=== PATIENT | female | born 1930 | race Caucasian/White ===

== ENCOUNTER 2021-10-19 06:39 | Inpatient (IN) | payer OTHER ==
[2021-10-19 06:46] VITALS: BMI 18.8
[2021-10-19] MEDS ORDERED: ACETAMINOPHEN 1000 MG/100 ML BAG IVPB ONE (07:23)
[2021-10-19 07:52] LABS: BASO % 0.7 % (0-2.0); EOS % 0.3 % (0-4.5); HEMATOCRIT 40.7 % (32.4-45.2); HEMOGLOBIN 13.9 GM/dL (10.7-15.3); LYMPH % 17.9 % (8-40); MCH 31.6 pg (25.7-33.7); MCHC 34.1 g/dl (32.0-36.0); MEAN CELL VOLUME 92.6 fl (80-96); MEAN PLT VOLUME 7.4 fl (7.5-11.1); NEUT % 75.1 % (42.8-82.8); PLATELET COUNT 242 10^3/uL (134-434); RBC 4.39 M/mm3 (3.60-5.2); RDW 14.4 % (11.6-15.6); WHITE BLOOD COUNT 8.5 K/mm3 (4.0-10.0)
[2021-10-19 08:10] LABS: CALCIUM 9.3 mg/dL (8.5-10.1)
[2021-10-19 08:11] LABS: ALBUMIN 3.5 g/dl (3.4-5.0); BLOOD UREA NITROGEN 11.5 mg/dL (7-18)
[2021-10-19 08:14] LABS: CREATININE 0.7 mg/dL (0.55-1.3)
[2021-10-19 08:16] LABS: BILIRUBIN,TOTAL 0.4 mg/dL (0.2-1); TOT PROT 6.8 g/dl (6.4-8.2)
[2021-10-19] MEDS ORDERED: ACETAMINOPHEN INJECTION 100 ML IVPB ONE (08:28)
[2021-10-19] MEDS ORDERED: LORazepam 0.5 MG TABLET PO ONE (09:43)
[2021-10-19] MEDS ORDERED: LORazepam 0.5 MG TABLET ONE (09:48)
[2021-10-19] MEDS ORDERED: DIPHTH,PERTUSS(ACELL),TET 0.5 ML DISP.SYRIN IM ONE ×2 (10:41→10:46)
[2021-10-19 11:00] LABS: PH,URINE 7.5 (5.0-8.0); URINE APPEARANCE CLEAR; URINE BILIRUBIN NEGATIVE (NEGATIVE); URINE COLOR YELLOW; URINE GLUCOSE (UA) NEGATIVE (NEGATIVE); URINE KETONE NEGATIVE (NEGATIVE); URINE LEUK ESTERASE NEGATIVE (NEGATIVE); URINE NITRITE NEGATIVE (NEGATIVE); URINE PROTEIN NEGATIVE (NEGATIVE); URINE UROBILINOGEN 0.2 mg/dL (0.2-1.0)
[2021-10-20] MEDS ORDERED: LORazepam 0.5 MG TABLET PO PRN (07:58)
[2021-10-20] MEDS: ASCORBIC ACID 500 MG TABLET (FP) PO SCH (10:51)
[2021-10-20] MEDS: MEMANTINE HCL 5 MG TABLET (UD) PO SCH (10:51)
[2021-10-20] MEDS: CHOLECALCIFEROL (VIT D3) 400 UNIT (10 MCG) TABLET PO SCH (10:51)
[2021-10-20] MEDS: ENOXAPARIN NA (PORCINE) 40 MG/0.4 ML DISP.SYRIN SQ SCH (10:51)
[2021-10-20] MEDS: CYANOCOBALAMIN 1,000 MCG TABLET (FP) PO SCH (10:51)
[2021-10-21 08:46] LABS: BASO % 0.4 % (0-2.0); HEMATOCRIT 39.7 % (32.4-45.2); HEMOGLOBIN 13.5 GM/dL (10.7-15.3); LYMPH % 19.7 % (8-40); MCH 31.3 pg (25.7-33.7); MEAN CELL VOLUME 92.2 fl (80-96); MEAN PLT VOLUME 8.3 fl (7.5-11.1); MONO % 7.9 % (3.8-10.2); PLATELET COUNT 240 10^3/uL (134-434); RBC 4.31 M/mm3 (3.60-5.2); RDW 14.2 % (11.6-15.6); WHITE BLOOD COUNT 8.3 K/mm3 (4.0-10.0)
[2021-10-21 09:24] LABS: CALCIUM 8.5 mg/dL (8.5-10.1)
[2021-10-21 09:25] LABS: ALBUMIN 3.2 g/dl (3.4-5.0); BLOOD UREA NITROGEN 20.1 mg/dL (7-18); MAGNESIUM 2.2 mg/dL (1.8-2.4)
[2021-10-21 09:27] LABS: CREATININE 0.7 mg/dL (0.55-1.3)
[2021-10-21 09:29] LABS: BILIRUBIN,TOTAL 0.8 mg/dL (0.2-1); PHOSPHOROUS 4.1 mg/dL (2.5-4.9); TOT PROT 6.4 g/dl (6.4-8.2)
[2021-10-21] MEDS: CHOLECALCIFEROL (VIT D3) 400 UNIT (10 MCG) TABLET PO SCH (10:21)
[2021-10-21] MEDS: CYANOCOBALAMIN 1,000 MCG TABLET (FP) PO SCH (10:21)
[2021-10-21] MEDS: MEMANTINE HCL 5 MG TABLET (UD) PO SCH (10:21)
[2021-10-21] MEDS: ASCORBIC ACID 500 MG TABLET (FP) PO SCH (10:21)
[2021-10-21] MEDS: ENOXAPARIN NA (PORCINE) 40 MG/0.4 ML DISP.SYRIN SQ SCH (10:21)
[2021-10-21] MEDS: MELATONIN 5 MG TABLETS PO SCH (21:18)
[2021-10-22 07:18] LABS: BASO % 0.4 % (0-2.0); EOS % 0.8 % (0-4.5); HEMATOCRIT 38.8 % (32.4-45.2); LYMPH % 23.4 % (8-40); MCHC 33.6 g/dl (32.0-36.0); MEAN CELL VOLUME 92.4 fl (80-96); MEAN PLT VOLUME 7.9 fl (7.5-11.1); MONO % 8.4 % (3.8-10.2); PLATELET COUNT 220 10^3/uL (134-434); RDW 14.3 % (11.6-15.6)
[2021-10-22 07:43] LABS: BLOOD UREA NITROGEN 22.6 mg/dL (7-18); CALCIUM 8.5 mg/dL (8.5-10.1); MAGNESIUM 2.2 mg/dL (1.8-2.4)
[2021-10-22 07:47] LABS: CREATININE 0.6 mg/dL (0.55-1.3)
[2021-10-22] MEDS: ENOXAPARIN NA (PORCINE) 40 MG/0.4 ML DISP.SYRIN SQ SCH (09:20)
[2021-10-22] MEDS: CHOLECALCIFEROL (VIT D3) 400 UNIT (10 MCG) TABLET PO SCH (09:20)
[2021-10-22] MEDS: ASCORBIC ACID 500 MG TABLET (FP) PO SCH (09:20)
[2021-10-22] MEDS: CYANOCOBALAMIN 1,000 MCG TABLET (FP) PO SCH (09:20)
[2021-10-22] MEDS: MEMANTINE HCL 5 MG TABLET (UD) PO SCH (09:20)
[2021-10-22] MEDS: MELATONIN 5 MG TABLETS PO SCH (22:45)
[2021-10-23 06:57] LABS: BASO % 0.5 % (0-2.0); EOS % 0.9 % (0-4.5); HEMOGLOBIN 12.7 GM/dL (10.7-15.3); LYMPH % 24.3 % (8-40); MCH 31.7 pg (25.7-33.7); MCHC 34.4 g/dl (32.0-36.0); MEAN CELL VOLUME 92.4 fl (80-96); MEAN PLT VOLUME 7.5 fl (7.5-11.1); MONO % 8.9 % (3.8-10.2); NEUT % 65.4 % (42.8-82.8); PLATELET COUNT 199 10^3/uL (134-434); RDW 14.6 % (11.6-15.6)
[2021-10-23 07:11] LABS: BLOOD UREA NITROGEN 24.5 mg/dL (7-18); MAGNESIUM 2.1 mg/dL (1.8-2.4)
[2021-10-23 07:14] LABS: PHOSPHOROUS 3.5 mg/dL (2.5-4.9)
[2021-10-23 07:15] LABS: CREATININE 0.6 mg/dL (0.55-1.3)
[2021-10-23 09:52] VITALS: BP 131/83; PULSE 84; TEMP 97.8
[2021-10-23] MEDS: CYANOCOBALAMIN 1,000 MCG TABLET (FP) PO SCH (09:57)
[2021-10-23] MEDS: ASCORBIC ACID 500 MG TABLET (FP) PO SCH (09:57)
[2021-10-23] MEDS: MEMANTINE HCL 5 MG TABLET (UD) PO SCH (09:57)
[2021-10-23] MEDS: CHOLECALCIFEROL (VIT D3) 400 UNIT (10 MCG) TABLET PO SCH (09:57)
[2021-10-23] MEDS: ENOXAPARIN NA (PORCINE) 40 MG/0.4 ML DISP.SYRIN SQ SCH (09:57)
[2021-10-24 14:08] LABS: SARS-CoV-2 NAA Not Detected (Not Detected)
== END 2021-10-23 12:55 | DRG 884 ==
LOC: JER 06:39 → JERBED 12:27 → OBSVTOIN 15:38 → J4W 23:29
PROVIDERS: ADMIT Internal Medicine; ATTEND Internal Medicine
PROC: 0HQ0XZZ Repair Scalp Skin, External Approach (ICD-10-PCS; principal; 2021-10-19)
DX: F03.90 Unspecified dementia, unspecified severity, without behavioral disturbance, psychotic disturbance, mood disturbance, and anxiety (principal); E43 Unspecified severe protein-calorie malnutrition; R64 Cachexia; Z68.1 Body mass index [BMI] 19.9 or less, adult; S01.01XA Laceration without foreign body of scalp, initial encounter; W19.XXXA Unspecified fall, initial encounter; Y93.89 Activity, other specified; Y92.091 Bathroom in other non-institutional residence as the place of occurrence of the external cause; Y99.8 Other external cause status; R13.12 Dysphagia, oropharyngeal phase
CPT/HCPCS: 36415; 70450-TC; 71045-TC-FY; 72125-TC; 72170-TC-FY; 74230-TC-FY; 80048; 80053; 81003; 83735; 84100; 84443; 84479; 84484; 85025; 87086; 87804; 90715; 92611-GN; 93005; 93010; 97116-GP; 97162-GP; 99285-25; C9803-CS; G0378; U0003; U0005

== ENCOUNTER 2021-12-31 11:35 | Inpatient (IN) | payer OTHER, BC ==
[2021-12-31] MEDS ORDERED: morphine CARPU-JECT 4 MG/1 ML DISP.SYRIN IVPUSH ONE ×3 (12:52→13:55)
[2021-12-31] MEDS ORDERED: morphine CARPU-JECT 2 MG/1 ML DISP.SYRIN IVPUSH ONE (12:52)
[2021-12-31] MEDS ORDERED: SODIUM CHLORIDE 500 ML IV STA (12:58)
[2021-12-31 14:10] LABS: ALBUMIN 3.4 g/dl (3.4-5.0); CALCIUM 9.7 mg/dL (8.5-10.1)
[2021-12-31 14:11] LABS: BLOOD UREA NITROGEN 13.4 mg/dL (7-18)
[2021-12-31 14:13] LABS: CREATININE 0.5 mg/dL (0.55-1.3)
[2021-12-31 14:14] LABS: BILIRUBIN,TOTAL 0.4 mg/dL (0.2-1); TOT PROT 7.1 g/dl (6.4-8.2)
[2021-12-31 14:38] LABS: EPI CELLS 0 /uL (0-25.1); HYALINE CASTS 1 /uL (0-3.1); URINE APPEARANCE CLEAR; URINE BACTERIA 3683 /uL (0-1359); URINE BILIRUBIN NEGATIVE (NEGATIVE); URINE COLOR YELLOW; URINE GLUCOSE (UA) NEGATIVE (NEGATIVE); URINE KETONE NEGATIVE (NEGATIVE); URINE LEUK ESTERASE 3+ (NEGATIVE); URINE NITRITE POSITIVE (NEGATIVE); URINE PROTEIN NEGATIVE (NEGATIVE); URINE RBC 5 /uL (0-23.9); URINE UROBILINOGEN 0.2 mg/dL (0.2-1.0); URINE WBC 217 /uL (0-25.8)
[2021-12-31] MEDS ORDERED: CEFTRIAXONE 1 GM in DEXTROSE 5%-WATER - 100 ML IVPB ONE (14:48)
[2021-12-31] MEDS ORDERED: CEFTRIAXONE 1 GM/50 ML BAG ONE (14:59)
[2021-12-31] MEDS ORDERED: ACETAMINOPHEN 1000 MG/100 ML BAG IVPB PRN (16:59)
[2021-12-31] MEDS ORDERED: SODIUM CHLORIDE 1,000 ML IV SCH (17:00)
[2021-12-31 17:38] LABS: BASO % 0.1 % (0-2.0); EOS % 0.1 % (0-4.5); HEMATOCRIT 39.5 % (32.4-45.2); HEMOGLOBIN 13.1 GM/dL (10.7-15.3); LYMPH % 6.7 % (8-40); MCH 31.1 pg (25.7-33.7); MCHC 33.2 g/dl (32.0-36.0); MEAN CELL VOLUME 93.6 fl (80-96); MONO % 4.1 % (3.8-10.2); PLATELET COUNT 326 10^3/uL (134-434); RBC 4.22 M/mm3 (3.60-5.2); RDW 14.6 % (11.6-15.6); WHITE BLOOD COUNT 16.2 K/mm3 (4.0-10.0)
[2021-12-31] MEDS: morphine SULFATE 4 MG/ML VIAL IVPUSH PRN ×2 (18:17→21:41)
[2022-01-01] MEDS: morphine SULFATE 4 MG/ML VIAL IVPUSH PRN ×2 (04:18→21:33)
[2022-01-01 08:53] LABS: INR 1.11 (0.83-1.09); PROTHROMBIN TIME (PATIENT) 12.8 SEC (9.7-13.0)
[2022-01-01 08:55] LABS: BASO % 0.1 % (0-2.0); HEMATOCRIT 34.8 % (32.4-45.2); HEMOGLOBIN 12.1 GM/dL (10.7-15.3); LYMPH % 5.7 % (8-40); MCH 31.9 pg (25.7-33.7); MCHC 34.6 g/dl (32.0-36.0); MEAN PLT VOLUME 7.2 fl (7.5-11.1); MONO % 5.4 % (3.8-10.2); NEUT % 88.8 % (42.8-82.8); PLATELET COUNT 290 10^3/uL (134-434); RBC 3.78 M/mm3 (3.60-5.2); RDW 14.6 % (11.6-15.6)
[2022-01-01 08:56] LABS: ACTIVATED PTT 28.5 SECONDS (25.2-36.5)
[2022-01-01 09:37] LABS: ALBUMIN 3.1 g/dl (3.4-5.0); MAGNESIUM 2.2 mg/dL (1.8-2.4)
[2022-01-01 09:38] LABS: BLOOD UREA NITROGEN 14.8 mg/dL (7-18)
[2022-01-01 09:41] LABS: CREATININE 0.5 mg/dL (0.55-1.3); PHOSPHOROUS 3.2 mg/dL (2.5-4.9)
[2022-01-01 09:42] LABS: BILIRUBIN,TOTAL 0.8 mg/dL (0.2-1); TOT PROT 6.2 g/dl (6.4-8.2)
[2022-01-01] MEDS ORDERED: ENOXAPARIN NA (PORCINE) 30 MG/0.3 ML DISP.SYRIN SQ SCH (10:00)
[2022-01-01] MEDS ORDERED: CEFTRIAXONE 1 GM in DEXTROSE 5%-WATER - 50 ML IVPB SCH (10:00)
[2022-01-01] MEDS ORDERED: cefTRIAXone SODIUM 1 GM VIAL ONE (10:09)
[2022-01-01] MEDS ORDERED: DEXTROSE 5%-WATER - 50 ML IVPB ONE ×3 (10:09→21:32)
[2022-01-01] MEDS: MEMANTINE HCL 5 MG TABLET (UD) PO SCH (10:20)
[2022-01-01] MEDS ORDERED: PROPOFOL 20 ML ONE (11:24)
[2022-01-01] MEDS ORDERED: ceFAZolin SODIUM 1 GM VIAL ONE ×3 (11:28→21:32)
[2022-01-01] MEDS ORDERED: ACETAMINOPHEN INJECTION 100 ML IVPB ONE ×2 (11:36→14:58)
[2022-01-01] MEDS ORDERED: ceFAZolin SODIUM 1 GM VIAL IVPB ONE (12:30)
[2022-01-01] MEDS ORDERED: VANCOMYCIN 1,000 MG VIAL (RESTRICTED TO ID ONLY) ONE (13:12)
[2022-01-01] MEDS ORDERED: VANCOMYCIN 1,000 MG VIAL (RESTRICTED TO ID ONLY) IVPB ONE (13:15)
[2022-01-01] MEDS ORDERED: CEFAZOLIN 1 GM in DEXTROSE 5%-WATER - 50 ML IVPB SCH ×2 (14:15→20:00)
[2022-01-01] MEDS ORDERED: DEXMEDETOMIDINE HCL 200 MCG/2 ML IVPB ONE (14:58)
[2022-01-01] MEDS: CEFAZOLIN 1 GM in DEXTROSE 5%-WATER - 50 ML IVPB SCH ×2 (15:51→21:36)
[2022-01-02] MEDS: morphine SULFATE 4 MG/ML VIAL IVPUSH PRN ×3 (04:17→17:14)
[2022-01-02] MEDS ORDERED: SUCCINYLCHOLINE CHLORIDE 200 MG/10 ML SYRINGE ONE ×2 (07:01→07:04)
[2022-01-02] MEDS ORDERED: PROPOFOL 20 ML ONE ×2 (07:02→07:24)
[2022-01-02 09:02] LABS: HEMATOCRIT 30.5 % (32.4-45.2); HEMOGLOBIN 10.4 GM/dL (10.7-15.3); MCH 31.6 pg (25.7-33.7); MCHC 34.2 g/dl (32.0-36.0); MEAN CELL VOLUME 92.6 fl (80-96); MEAN PLT VOLUME 7.9 fl (7.5-11.1); PLATELET COUNT 234 10^3/uL (134-434); RDW 14.3 % (11.6-15.6); WHITE BLOOD COUNT 14.4 K/mm3 (4.0-10.0)
[2022-01-02 09:13] LABS: CALCIUM 8.9 mg/dL (8.5-10.1)
[2022-01-02 09:14] LABS: BLOOD UREA NITROGEN 20.6 mg/dL (7-18)
[2022-01-02 09:16] LABS: CREATININE 0.4 mg/dL (0.55-1.3)
[2022-01-02] MEDS: MEMANTINE HCL 5 MG TABLET (UD) PO SCH (09:28)
[2022-01-02] MEDS ORDERED: ASPIRIN 325 MG TABLET PO SCH (10:00)
[2022-01-02 11:55] VITALS: BMI 12.5
[2022-01-02] MEDS ORDERED: CEFTRIAXONE 1 GM in DEXTROSE 5%-WATER - 50 ML IVPB ONE (15:59)
[2022-01-02] MEDS ORDERED: DEXTROSE 5%-WATER - 50 ML IVPB ONE (16:48)
[2022-01-02] MEDS ORDERED: cefTRIAXone SODIUM 1 GM VIAL ONE (16:48)
[2022-01-03] MEDS: MEMANTINE HCL 5 MG TABLET (UD) PO SCH (09:47)
[2022-01-03] MEDS ORDERED: ENOXAPARIN NA (PORCINE) 40 MG/0.4 ML DISP.SYRIN SQ SCH (10:00)
[2022-01-03] MEDS: ENOXAPARIN NA (PORCINE) 30 MG/0.3 ML DISP.SYRIN SQ SCH (10:43)
[2022-01-03 10:52] LABS: BASO % 0.2 % (0-2.0); EOS % 0.1 % (0-4.5); HEMATOCRIT 31.9 % (32.4-45.2); HEMOGLOBIN 10.7 GM/dL (10.7-15.3); LYMPH % 8.4 % (8-40); MCH 31.5 pg (25.7-33.7); MCHC 33.6 g/dl (32.0-36.0); MEAN CELL VOLUME 93.7 fl (80-96); MEAN PLT VOLUME 7.6 fl (7.5-11.1); MONO % 5.4 % (3.8-10.2); NEUT % 85.9 % (42.8-82.8); PLATELET COUNT 235 10^3/uL (134-434); RBC 3.41 M/mm3 (3.60-5.2); RDW 14.5 % (11.6-15.6); WHITE BLOOD COUNT 14.8 K/mm3 (4.0-10.0)
[2022-01-03 10:58] LABS: HEMATOCRIT 32.7 % (32.4-45.2); HEMOGLOBIN 10.8 GM/dL (10.7-15.3); MCH 31.3 pg (25.7-33.7); MCHC 33.1 g/dl (32.0-36.0); MEAN CELL VOLUME 94.6 fl (80-96); PLATELET COUNT 252 10^3/uL (134-434); RBC 3.46 M/mm3 (3.60-5.2); RDW 14.6 % (11.6-15.6)
[2022-01-03 11:14] LABS: CALCIUM 9.2 mg/dL (8.5-10.1)
[2022-01-03 11:18] LABS: CREATININE 0.5 mg/dL (0.55-1.3)
[2022-01-03] MEDS: oxyCODONE HCL 5 MG TABLET PO SCH ×2 (14:03→20:17)
[2022-01-04] MEDS: oxyCODONE HCL 5 MG TABLET PO SCH ×3 (04:56→21:14)
[2022-01-04 08:57] LABS: BASO % 0.3 % (0-2.0); EOS % 0.1 % (0-4.5); HEMATOCRIT 32.8 % (32.4-45.2); HEMOGLOBIN 11.2 GM/dL (10.7-15.3); LYMPH % 10.8 % (8-40); MCH 31.8 pg (25.7-33.7); MCHC 34.1 g/dl (32.0-36.0); MEAN CELL VOLUME 93.1 fl (80-96); MEAN PLT VOLUME 7.6 fl (7.5-11.1); NEUT % 82.8 % (42.8-82.8); PLATELET COUNT 243 10^3/uL (134-434); RBC 3.53 M/mm3 (3.60-5.2); RDW 14.3 % (11.6-15.6); WHITE BLOOD COUNT 15.9 K/mm3 (4.0-10.0)
[2022-01-04] MEDS: ENOXAPARIN NA (PORCINE) 30 MG/0.3 ML DISP.SYRIN SQ SCH (09:06)
[2022-01-04] MEDS: MEMANTINE HCL 5 MG TABLET (UD) PO SCH (09:06)
[2022-01-04 09:19] LABS: ALBUMIN 2.7 g/dl (3.4-5.0); BLOOD UREA NITROGEN 18.2 mg/dL (7-18); MAGNESIUM 2.3 mg/dL (1.8-2.4)
[2022-01-04 09:22] LABS: CREATININE 0.4 mg/dL (0.55-1.3); PHOSPHOROUS 2.3 mg/dL (2.5-4.9)
[2022-01-05] MEDS: oxyCODONE HCL 5 MG TABLET PO SCH ×3 (03:56→21:22)
[2022-01-05 09:57] LABS: BASO % 0.3 % (0-2.0); HEMATOCRIT 32.6 % (32.4-45.2); HEMOGLOBIN 10.7 GM/dL (10.7-15.3); MCH 31.2 pg (25.7-33.7); MEAN CELL VOLUME 94.8 fl (80-96); MEAN PLT VOLUME 7.7 fl (7.5-11.1); MONO % 4.9 % (3.8-10.2); NEUT % 87.8 % (42.8-82.8); PLATELET COUNT 270 10^3/uL (134-434); RBC 3.44 M/mm3 (3.60-5.2); RDW 14.3 % (11.6-15.6); WHITE BLOOD COUNT 14.6 K/mm3 (4.0-10.0)
[2022-01-05 10:18] LABS: CALCIUM 8.9 mg/dL (8.5-10.1)
[2022-01-05 10:19] LABS: ALBUMIN 2.6 g/dl (3.4-5.0); BLOOD UREA NITROGEN 22.3 mg/dL (7-18)
[2022-01-05 10:21] LABS: CREATININE 0.5 mg/dL (0.55-1.3)
[2022-01-05 10:22] LABS: PHOSPHOROUS 2.4 mg/dL (2.5-4.9)
[2022-01-05 10:23] LABS: TOT PROT 5.7 g/dl (6.4-8.2)
[2022-01-05 10:24] LABS: BILIRUBIN,TOTAL 0.6 mg/dL (0.2-1)
[2022-01-05] MEDS: ENOXAPARIN NA (PORCINE) 30 MG/0.3 ML DISP.SYRIN SQ SCH (10:28)
[2022-01-05] MEDS: MEMANTINE HCL 5 MG TABLET (UD) PO SCH (10:28)
[2022-01-05] MEDS: NAPH,MB-DB/K PH,MBDB POWDER PACKET PO SCH ×2 (14:30→21:23)
[2022-01-06] MEDS: oxyCODONE HCL 5 MG TABLET PO SCH ×3 (05:40→21:00)
[2022-01-06] MEDS: NAPH,MB-DB/K PH,MBDB POWDER PACKET PO SCH (06:44)
[2022-01-06] MEDS: ENOXAPARIN NA (PORCINE) 30 MG/0.3 ML DISP.SYRIN SQ SCH (10:10)
[2022-01-06] MEDS: MEMANTINE HCL 5 MG TABLET (UD) PO SCH (10:11)
[2022-01-06 12:04] LABS: HEMATOCRIT 32.4 % (32.4-45.2); HEMOGLOBIN 10.7 GM/dL (10.7-15.3); MCH 31.1 pg (25.7-33.7); MCHC 33.1 g/dl (32.0-36.0); MEAN CELL VOLUME 93.9 fl (80-96); MEAN PLT VOLUME 7.8 fl (7.5-11.1); PLATELET COUNT 283 10^3/uL (134-434); RBC 3.45 M/mm3 (3.60-5.2); RDW 14.2 % (11.6-15.6); WHITE BLOOD COUNT 13.1 K/mm3 (4.0-10.0)
[2022-01-06 12:26] LABS: CALCIUM 8.4 mg/dL (8.5-10.1); MAGNESIUM 2.2 mg/dL (1.8-2.4)
[2022-01-06 12:27] LABS: BLOOD UREA NITROGEN 16.9 mg/dL (7-18)
[2022-01-06 12:30] LABS: CREATININE 0.5 mg/dL (0.55-1.3); PHOSPHOROUS 3.2 mg/dL (2.5-4.9)
[2022-01-06 19:32] LABS: CALCIUM 8.3 mg/dL (8.5-10.1)
[2022-01-06 19:33] LABS: ALBUMIN 2.7 g/dl (3.4-5.0); BLOOD UREA NITROGEN 17.2 mg/dL (7-18)
[2022-01-06 19:36] LABS: CREATININE 0.5 mg/dL (0.55-1.3)
[2022-01-06 19:37] LABS: TOT PROT 6.2 g/dl (6.4-8.2)
[2022-01-06 19:38] LABS: BILIRUBIN,TOTAL 0.9 mg/dL (0.2-1)
[2022-01-06 19:48] LABS: ACTIVATED PTT 31.2 SECONDS (25.2-36.5); INR 1.16 (0.83-1.09); PROTHROMBIN TIME (PATIENT) 13.4 SEC (9.7-13.0)
[2022-01-07] MEDS ORDERED: HEPARIN NA (PORCINE) 5,000 UNITS/ML 1ML VIAL IVPUSH PRN ×4 (00:04→04:33)
[2022-01-07] MEDS ORDERED: HEPARIN INFUSION - 25,000 UNITS/500 ML INFUS.BAG IVPB SCH (00:15)
[2022-01-07] MEDS: HEPARIN INFUSION - 25,000 UNITS/500 ML INFUS.BAG IVPB SCH (00:35)
[2022-01-07] MEDS: oxyCODONE HCL 5 MG TABLET PO SCH ×3 (06:22→22:50)
[2022-01-07 08:36] LABS: HEMATOCRIT 29.5 % (32.4-45.2); MCH 31.4 pg (25.7-33.7); MCHC 33.8 g/dl (32.0-36.0); MEAN CELL VOLUME 92.9 fl (80-96); MEAN PLT VOLUME 7.4 fl (7.5-11.1); PLATELET COUNT 299 10^3/uL (134-434); RBC 3.18 M/mm3 (3.60-5.2); RDW 14.2 % (11.6-15.6); WHITE BLOOD COUNT 13.7 K/mm3 (4.0-10.0)
[2022-01-07] MEDS: MEMANTINE HCL 5 MG TABLET (UD) PO SCH (09:31)
[2022-01-07 09:36] LABS: ALBUMIN 2.3 g/dl (3.4-5.0); BILIRUBIN,TOTAL 0.9 mg/dL (0.2-1); BLOOD UREA NITROGEN 16.5 mg/dL (7-18); CREATININE 0.4 mg/dL (0.55-1.3); TOT PROT 5.4 g/dl (6.4-8.2)
[2022-01-07] MEDS ORDERED: SENNOSIDES 8.6MG TABLET (FP) PO PRN (12:14)
[2022-01-07] MEDS: POLYETHYLENE GLYCOL (HEALTHYLAX) 3350 17 GM PACKET PO SCH (17:56)
[2022-01-08] MEDS: HEPARIN INFUSION - 25,000 UNITS/500 ML INFUS.BAG IVPB SCH (05:34)
[2022-01-08] MEDS: oxyCODONE HCL 5 MG TABLET PO SCH ×3 (05:34→20:59)
[2022-01-08 07:43] LABS: HEMATOCRIT 31.9 % (32.4-45.2); HEMOGLOBIN 10.7 GM/dL (10.7-15.3); MCHC 33.5 g/dl (32.0-36.0); MEAN CELL VOLUME 92.6 fl (80-96); MEAN PLT VOLUME 7.8 fl (7.5-11.1); PLATELET COUNT 315 10^3/uL (134-434); RBC 3.44 M/mm3 (3.60-5.2); RDW 14.2 % (11.6-15.6)
[2022-01-08 07:56] LABS: CALCIUM 8.3 mg/dL (8.5-10.1)
[2022-01-08 07:57] LABS: BLOOD UREA NITROGEN 19.5 mg/dL (7-18)
[2022-01-08 08:00] LABS: CREATININE 0.4 mg/dL (0.55-1.3)
[2022-01-08] MEDS: MEMANTINE HCL 5 MG TABLET (UD) PO SCH (09:53)
[2022-01-08] MEDS: POLYETHYLENE GLYCOL (HEALTHYLAX) 3350 17 GM PACKET PO SCH (09:53)
[2022-01-08] MEDS ORDERED: METOPROLOL TARTRATE 5 MG/5 ML VIAL IVPUSH ONE (19:05)
[2022-01-09] MEDS: HEPARIN INFUSION - 25,000 UNITS/500 ML INFUS.BAG IVPB SCH ×2 (04:33→12:58)
[2022-01-09] MEDS: oxyCODONE HCL 5 MG TABLET PO SCH ×3 (05:03→20:51)
[2022-01-09 07:36] LABS: HEMOGLOBIN 10.5 GM/dL (10.7-15.3); MCH 31.5 pg (25.7-33.7); MCHC 33.8 g/dl (32.0-36.0); MEAN CELL VOLUME 93.4 fl (80-96); MEAN PLT VOLUME 7.9 fl (7.5-11.1); PLATELET COUNT 297 10^3/uL (134-434); RBC 3.32 M/mm3 (3.60-5.2); RDW 14.2 % (11.6-15.6); WHITE BLOOD COUNT 12.1 K/mm3 (4.0-10.0)
[2022-01-09 08:01] LABS: CALCIUM 8.3 mg/dL (8.5-10.1)
[2022-01-09 08:02] LABS: BLOOD UREA NITROGEN 19.5 mg/dL (7-18)
[2022-01-09 08:05] LABS: CREATININE 0.4 mg/dL (0.55-1.3)
[2022-01-09] MEDS: MEMANTINE HCL 5 MG TABLET (UD) PO SCH (10:21)
[2022-01-09] MEDS: POLYETHYLENE GLYCOL (HEALTHYLAX) 3350 17 GM PACKET PO SCH (10:21)
[2022-01-09] MEDS: APIXABAN 5 MG TABLET PO SCH (21:25)
[2022-01-10] MEDS: oxyCODONE HCL 5 MG TABLET PO SCH ×3 (05:36→21:55)
[2022-01-10 06:37] LABS: HEMATOCRIT 32.9 % (32.4-45.2); MCHC 33.5 g/dl (32.0-36.0); MEAN CELL VOLUME 92.3 fl (80-96); MEAN PLT VOLUME 7.5 fl (7.5-11.1); PLATELET COUNT 354 10^3/uL (134-434); RBC 3.57 M/mm3 (3.60-5.2); RDW 14.3 % (11.6-15.6); WHITE BLOOD COUNT 19.1 K/mm3 (4.0-10.0)
[2022-01-10 06:48] LABS: CALCIUM 8.2 mg/dL (8.5-10.1)
[2022-01-10 06:52] LABS: CREATININE 0.5 mg/dL (0.55-1.3)
[2022-01-10] MEDS: APIXABAN 5 MG TABLET PO SCH ×2 (10:48→21:56)
[2022-01-10] MEDS: MEMANTINE HCL 5 MG TABLET (UD) PO SCH (10:49)
[2022-01-10] MEDS: POLYETHYLENE GLYCOL (HEALTHYLAX) 3350 17 GM PACKET PO SCH (10:49)
[2022-01-10] MEDS ORDERED: DEXTROSE 5%-0.45% SALINE 1,000 ML IV SCH (11:45)
[2022-01-11] MEDS: oxyCODONE HCL 5 MG TABLET PO SCH ×3 (05:54→21:22)
[2022-01-11 08:21] LABS: HEMATOCRIT 34.4 % (32.4-45.2); HEMOGLOBIN 11.3 GM/dL (10.7-15.3); MCH 30.8 pg (25.7-33.7); MCHC 32.8 g/dl (32.0-36.0); MEAN CELL VOLUME 93.9 fl (80-96); MEAN PLT VOLUME 7.9 fl (7.5-11.1); PLATELET COUNT 326 10^3/uL (134-434); RBC 3.67 M/mm3 (3.60-5.2); RDW 14.4 % (11.6-15.6); WHITE BLOOD COUNT 15.4 K/mm3 (4.0-10.0)
[2022-01-11 08:30] LABS: CALCIUM 8.7 mg/dL (8.5-10.1)
[2022-01-11 08:31] LABS: BLOOD UREA NITROGEN 19.7 mg/dL (7-18)
[2022-01-11 08:34] LABS: CREATININE 0.5 mg/dL (0.55-1.3)
[2022-01-11] MEDS: APIXABAN 5 MG TABLET PO SCH ×2 (10:10→21:32)
[2022-01-11] MEDS: MEMANTINE HCL 5 MG TABLET (UD) PO SCH (10:11)
[2022-01-11] MEDS: POLYETHYLENE GLYCOL (HEALTHYLAX) 3350 17 GM PACKET PO SCH (11:08)
[2022-01-11] MEDS ORDERED: METOPROLOL TARTRATE 5 MG/5 ML VIAL IVPUSH PRN (14:21)
[2022-01-11] MEDS ORDERED: METOPROLOL TARTRATE 5 MG/5 ML VIAL ONE (14:25)
[2022-01-11] MEDS ORDERED: METOPROLOL TARTRATE 5 MG/5 ML VIAL IVPUSH ONE (14:33)
[2022-01-11] MEDS ORDERED: ACETAMINOPHEN 1000 MG/100 ML BAG IVPB PRN ×2 (14:38→15:28)
[2022-01-11 14:56] LABS: ARTERIAL BLD GAS O2 SATURATION 93.5 % (95-98); ARTERIAL BLOOD GAS BASE EXCESS 4.5 mmol/L (-2-2); ARTERIAL BLOOD GAS PO2 64.6 mmHg (80-100); ARTERIAL BLOOD GAS pH 7.454 (7.350-7.450)
[2022-01-11 14:57] LABS: ALLENS TEST POSITIVE
[2022-01-11 15:46] LABS: EPI CELLS 4 /uL (0-25.1); HYALINE CASTS 0 /uL (0-3.1); PH,URINE 5.5 (5.0-8.0); URINE APPEARANCE TURBID; URINE BACTERIA 98 /uL (0-1359); URINE BILIRUBIN NEGATIVE (NEGATIVE); URINE COLOR DK YELLOW; URINE GLUCOSE (UA) NEGATIVE (NEGATIVE); URINE KETONE NEGATIVE (NEGATIVE); URINE LEUK ESTERASE NEGATIVE (NEGATIVE); URINE NITRITE NEGATIVE (NEGATIVE); URINE PROTEIN 1+ (NEGATIVE); URINE RBC 14 /uL (0-23.9); URINE WBC 5 /uL (0-25.8)
[2022-01-12] MEDS: oxyCODONE HCL 5 MG TABLET PO SCH ×3 (04:41→21:10)
[2022-01-12 09:07] LABS: HEMATOCRIT 32.3 % (32.4-45.2); HEMOGLOBIN 10.7 GM/dL (10.7-15.3); MCH 31.1 pg (25.7-33.7); MCHC 33.1 g/dl (32.0-36.0); MEAN PLT VOLUME 7.7 fl (7.5-11.1); PLATELET COUNT 296 10^3/uL (134-434); RBC 3.44 M/mm3 (3.60-5.2); RDW 14.3 % (11.6-15.6); WHITE BLOOD COUNT 19.3 K/mm3 (4.0-10.0)
[2022-01-12 09:26] LABS: CALCIUM 8.8 mg/dL (8.5-10.1)
[2022-01-12 09:27] LABS: BLOOD UREA NITROGEN 27.1 mg/dL (7-18)
[2022-01-12 09:30] LABS: CREATININE 0.4 mg/dL (0.55-1.3)
[2022-01-12] MEDS: MEMANTINE HCL 5 MG TABLET (UD) PO SCH (10:34)
[2022-01-12] MEDS: POLYETHYLENE GLYCOL (HEALTHYLAX) 3350 17 GM PACKET PO SCH (10:34)
[2022-01-12] MEDS: APIXABAN 5 MG TABLET PO SCH ×2 (10:34→21:11)
[2022-01-12] MEDS ORDERED: D5-1/2NS+20 MEQ KCL - 20 MEQ/1,000 ML INFUS.BAG IV SCH (16:45)
[2022-01-12] MEDS ORDERED: PIPERACILLIN/TAZOB 4.5 GM 4.5 GM in DEXTROSE 5%-WATER 100 ML IVPB SCH (18:00)
[2022-01-12] MEDS ORDERED: PIPERACILLIN/TAZOBACTAM 4.5 GM VIAL IVPB ONE (18:46)
[2022-01-12] MEDS ORDERED: DEXTROSE 5%-WATER 100 ML IVPB ONE (18:47)
[2022-01-13] MEDS ORDERED: DEXTROSE 5%-WATER - 50 ML IVPB ONE ×3 (01:16→16:41)
[2022-01-13] MEDS ORDERED: PIPERACILLIN/TAZOBACTAM 3.375 GM VIAL IVPB ONE ×3 (01:16→16:41)
[2022-01-13] MEDS: PIPERACILLIN/TAZOB 3.375 GM 3.375 GM in DEXTROSE 5%-WATER - 50 ML IVPB SCH ×3 (01:21→17:23)
[2022-01-13] MEDS: oxyCODONE HCL 5 MG TABLET PO SCH ×3 (04:50→21:47)
[2022-01-13] MEDS ORDERED: SODIUM CHLORIDE 0.45% 1,000 ML IV SCH (07:30)
[2022-01-13 08:31] LABS: HEMOGLOBIN 10.8 GM/dL (10.7-15.3); MCH 30.8 pg (25.7-33.7); MCHC 32.7 g/dl (32.0-36.0); MEAN CELL VOLUME 94.2 fl (80-96); MEAN PLT VOLUME 7.9 fl (7.5-11.1); PLATELET COUNT 331 10^3/uL (134-434); RDW 14.5 % (11.6-15.6)
[2022-01-13 09:03] LABS: BLOOD UREA NITROGEN 23.5 mg/dL (7-18)
[2022-01-13 09:04] LABS: CALCIUM 8.8 mg/dL (8.5-10.1); CREATININE 0.5 mg/dL (0.55-1.3)
[2022-01-13] MEDS: APIXABAN 5 MG TABLET PO SCH (09:35)
[2022-01-13] MEDS: MEMANTINE HCL 5 MG TABLET (UD) PO SCH (09:36)
[2022-01-13] MEDS: POLYETHYLENE GLYCOL (HEALTHYLAX) 3350 17 GM PACKET PO SCH (09:36)
[2022-01-13] MEDS ORDERED: D5-1/2NS+20 MEQ KCL - 20 MEQ/1,000 ML INFUS.BAG IV SCH (14:53)
[2022-01-13] MEDS: ENOXAPARIN NA (PORCINE) 30 MG/0.3 ML DISP.SYRIN SQ SCH (15:24)
[2022-01-13] MEDS: AMINO ACIDS 4.25%/D5W 1,000 ML IV SCH (15:24)
[2022-01-13] MEDS ORDERED: PIPERACILLIN/TAZOB 4.5 GM 4.5 GM in DEXTROSE 5%-WATER 100 ML IVPB SCH (18:00)
[2022-01-13] MEDS ORDERED: FAT EMULSION/OLIVE/SOY (CLINOLIPID) 250 ML EMULSION IV SCH (22:00)
[2022-01-13] MEDS ORDERED: FAT EMULSION/OLIVE/SOY/PHOSPHO 250 ML IV SCH (22:00)
[2022-01-14] MEDS ORDERED: PIPERACILLIN/TAZOBACTAM 3.375 GM VIAL IVPB ONE ×3 (01:20→17:15)
[2022-01-14] MEDS ORDERED: DEXTROSE 5%-WATER - 50 ML IVPB ONE ×3 (01:21→17:15)
[2022-01-14] MEDS ORDERED: ACETAMINOPHEN 1000 MG/100 ML BAG IVPB ONE (02:08)
[2022-01-14] MEDS: PIPERACILLIN/TAZOB 3.375 GM 3.375 GM in DEXTROSE 5%-WATER - 50 ML IVPB SCH ×3 (02:36→17:19)
[2022-01-14] MEDS: ENOXAPARIN NA (PORCINE) 30 MG/0.3 ML DISP.SYRIN SQ SCH ×2 (02:36→16:16)
[2022-01-14] MEDS: oxyCODONE HCL 5 MG TABLET PO SCH ×3 (04:46→20:22)
[2022-01-14 08:14] LABS: HEMATOCRIT 29.9 % (32.4-45.2); MCH 31.3 pg (25.7-33.7); MCHC 33.5 g/dl (32.0-36.0); MEAN CELL VOLUME 93.6 fl (80-96); MEAN PLT VOLUME 7.4 fl (7.5-11.1); PLATELET COUNT 268 10^3/uL (134-434); RBC 3.19 M/mm3 (3.60-5.2); RDW 14.4 % (11.6-15.6); WHITE BLOOD COUNT 23.5 K/mm3 (4.0-10.0)
[2022-01-14 08:42] LABS: CALCIUM 7.9 mg/dL (8.5-10.1)
[2022-01-14 08:43] LABS: BLOOD UREA NITROGEN 20.6 mg/dL (7-18); MAGNESIUM 2.1 mg/dL (1.8-2.4)
[2022-01-14 08:46] LABS: CREATININE 0.6 mg/dL (0.55-1.3)
[2022-01-14 08:48] LABS: BILIRUBIN,TOTAL 0.6 mg/dL (0.2-1); TOT PROT 5.2 g/dl (6.4-8.2)
[2022-01-14] MEDS: MEMANTINE HCL 5 MG TABLET (UD) PO SCH (09:08)
[2022-01-14] MEDS: POLYETHYLENE GLYCOL (HEALTHYLAX) 3350 17 GM PACKET PO SCH (09:08)
[2022-01-14 09:25] LABS: ANISOCYTOSIS 1+; MACROCYTOSIS 1+
[2022-01-14] MEDS ORDERED: SODIUM CHLORIDE 0.45% 1,000 ML IV SCH ×2 (09:45→12:08)
[2022-01-14] MEDS: AMINO ACIDS 4.25%/D5W 1,000 ML IV SCH (14:25)
[2022-01-15] MEDS: ENOXAPARIN NA (PORCINE) 30 MG/0.3 ML DISP.SYRIN SQ SCH (02:15)
[2022-01-15] MEDS: oxyCODONE HCL 5 MG TABLET PO SCH (04:50)
[2022-01-15] MEDS: MEMANTINE HCL 5 MG TABLET (UD) PO SCH (09:18)
[2022-01-15] MEDS: MORPHINE SULFATE/0.9% NACL/PF 100 MG/100 ML BAG IVPB SCH (20:35)
[2022-01-16] MEDS: MEMANTINE HCL 5 MG TABLET (UD) PO SCH (11:34)
[2022-01-17] MEDS: MORPHINE SULFATE/0.9% NACL/PF 100 MG/100 ML BAG IVPB SCH ×2 (10:51→20:30)
[2022-01-17] MEDS: MEMANTINE HCL 5 MG TABLET (UD) PO SCH (10:52)
[2022-01-18] MEDS: MEMANTINE HCL 5 MG TABLET (UD) PO SCH (12:59)
[2022-01-18] MEDS: morphine CARPU-JECT 4 MG/1 ML DISP.SYRIN IVPUSH SCH ×3 (16:26→16:30)
[2022-01-18 16:36] VITALS: BP 74/35; PULSE 61; TEMP 97
== END 2022-01-18 20:10 | disposition expired | DRG 521 ==
LOC: JER 11:35 → JERBED 17:07 → J6S 01-01 03:48 → J4S 01-07 03:54
PROVIDERS: ADMIT Internal Medicine; ATTEND Internal Medicine
PROC: 0SRS0J9 Replacement of Left Hip Joint, Femoral Surface with Synthetic Substitute, Cemented, Open Approach (ICD-10-PCS; principal; 2022-01-01 11:00)
DX: S72.002A Fracture of unspecified part of neck of left femur, initial encounter for closed fracture (principal); E43 Unspecified severe protein-calorie malnutrition; I26.99 Other pulmonary embolism without acute cor pulmonale; J69.0 Pneumonitis due to inhalation of food and vomit; J96.01 Acute respiratory failure with hypoxia; N30.00 Acute cystitis without hematuria; T81.718A Complication of other artery following a procedure, not elsewhere classified, initial encounter; R64 Cachexia; I24.8 Other forms of acute ischemic heart disease; I47.1 Supraventricular tachycardia; Z68.1 Body mass index [BMI] 19.9 or less, adult; E87.0 Hyperosmolality and hypernatremia; F03.90 Unspecified dementia, unspecified severity, without behavioral disturbance, psychotic disturbance, mood disturbance, and anxiety; I46.9 Cardiac arrest, cause unspecified; Y83.9 Surgical procedure, unspecified as the cause of abnormal reaction of the patient, or of later complication, without mention of misadventure at the time of the procedure; D72.829 Elevated white blood cell count, unspecified; F41.9 Anxiety disorder, unspecified; W19.XXXA Unspecified fall, initial encounter; Y93.9 Activity, unspecified; Y92.89 Other specified places as the place of occurrence of the external cause; Y99.9 Unspecified external cause status; E83.39 Other disorders of phosphorus metabolism
CPT/HCPCS: 36415; 36600; 70450-TC; 71045-TC-FY; 71046-TC-FY; 71275-TC; 72125-TC; 72170-TC-FY; 73502-TC-LT-FY; 80048; 80053; 81003; 82803; 83735; 84100; 84484; 85025; 85027; 85379; 85610; 85730; 86850; 86900; 86901; 87040; 87086; 87186; 88305-TC; 88311-TC; 93005; 93010; 93306-TC; 94760; 97116-GP; 97162-GP; 99285-25; C9803-CS; J1644; U0003; U0005